=== PATIENT | male | born 1965 | race Caucasian/White ===

== ENCOUNTER 2018-05-04 14:47 | Emergency (ER) | payer OTHER ==
[~2018-05-04] VITALS: Ht 175.3 cm; Wt 93.0 kg
[2018-05-04] MEDS ORDERED: LEXAPRO10 MG PO (15:05)
[2018-05-04] MEDS ORDERED: DILTIAZEM ER60 MG PO (15:05)
[2018-05-04] MEDS ORDERED: KLONOPIN0.5 MG PO (15:06)
[2018-05-04] MEDS ORDERED: DILTIAZEM 24HR180 M1 PO (16:09)
--- NOTE | 2018-05-06 13:51 | EKG ---
[facility] [address] [facility] [place] [address] Signed Normal sinus rhythm Normal ECG When compared with ECG of 04-MAY-2018 12:42, (Unconfirmed) Questionable change in QRS duration Confirmed by VILLA RODRIGUEZ MD ([id number]) on 05/06/2018 1:51:21 PM Electronically Signed By: VILLA RODRIGUEZ MD 05/06/18 1351 PATIENT NAME: DINAHNHAN Electrocardiogram DATE OF : 69 PHYSICIAN: VILLA RODRIGUEZ MD REPORT #: [id number] REPORT IS CONFIDENTIAL AND NOT TO BE RELEASED WITHOUT AUTHORIZATION
== END 2018-05-04 16:15 | disposition home or self-care (01) ==
LOC: ED 14:47
DX: R00.2 Palpitations (principal); F41.9 Anxiety disorder, unspecified; I10 Essential (primary) hypertension; Z88.0 Allergy status to penicillin; Z88.1 Allergy status to other antibiotic agents; Z79.899 Other long term (current) drug therapy
CPT/HCPCS: 71045; 80053; 84484; 85025; 93005; 93010; 99285

== ENCOUNTER 2018-11-20 19:34 | Emergency (ER) | payer OTHER ==
[~2018-11-20] VITALS: Ht 175.3 cm; Wt 96.2 kg
[~2018-11-20 19:34] MED LIST: DILTIAZEM 24HR180 M1 PO; DILTIAZEM ER60 MG PO; KLONOPIN0.5 MG PO; LEXAPRO10 MG PO
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
[2018-11-20] MEDS ORDERED: ABILIFY2 MG PO (19:55)
== END 2018-11-20 23:48 | disposition home or self-care (01) ==
LOC: ED 19:34
DX: Z00.8 Encounter for other general examination (principal); I48.91 Unspecified atrial fibrillation; F32.9 Major depressive disorder, single episode, unspecified; Z88.0 Allergy status to penicillin; Z88.1 Allergy status to other antibiotic agents; Z79.899 Other long term (current) drug therapy
CPT/HCPCS: 80053; 80176; 81001; 84443; 85025; 99283; G0480

== ENCOUNTER 2019-08-19 17:34 | Emergency (ER) | payer OTHER, BC ==
[~2019-08-19] VITALS: Ht 175.3 cm; Wt 104.3 kg
[~2019-08-19 17:34] MED LIST changes: +ABILIFY2 MG PO
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
[2019-08-19] MEDS ORDERED: CYCLOBENZAPRINE10 MG PO (18:44)
== END 2019-08-19 18:52 | disposition home or self-care (01) ==
LOC: ED 17:34
DX: S16.1XXA Strain of muscle, fascia and tendon at neck level, initial encounter (principal); S13.4XXA Sprain of ligaments of cervical spine, initial encounter; V53.5XXA Driver of pick-up truck or van injured in collision with car, pick-up truck or van in traffic accident, initial encounter; I48.91 Unspecified atrial fibrillation; F32.9 Major depressive disorder, single episode, unspecified; Z88.0 Allergy status to penicillin; Z88.1 Allergy status to other antibiotic agents; Z79.899 Other long term (current) drug therapy
CPT/HCPCS: 72040; 99283-25